=== PATIENT | male | born 1950 | race Caucasian/White ===

== ENCOUNTER → 2020-12-03 13:02 | Outpatient (CLI) | payer MEDICARE, OTHER, SELFPAY ==
[2020-12-03 20:32] LABS: COVID19 - ORCAS (NP or Nasal) Negative (Negative)
== END ==
PROVIDERS: Family Provider Family Medicine; PCP Family Medicine; Visit Provider Family Medicine
DX: Z20.822 Contact with and (suspected) exposure to COVID-19 (principal)
CPT/HCPCS: C9803; U0003

== ENCOUNTER → 2021-05-06 08:15 | Outpatient (CLI) | payer MEDICARE, OTHER, SELFPAY ==
[2021-05-07 21:54] LABS: COVID19 - ORCAS (NP or Nasal) Negative (Negative)
== END ==
PROVIDERS: Family Provider Family Medicine; PCP Family Medicine; Referring Provider Family Medicine; Visit Provider Family Medicine
DX: Z20.822 Contact with and (suspected) exposure to COVID-19 (principal)
CPT/HCPCS: C9803; U0003

== ENCOUNTER → 2021-11-12 13:00 | Outpatient (CLI) | payer MEDICARE, OTHER, SELFPAY ==
[2021-11-12 18:58] LABS: Alanine Aminotransferase 19 IU/L (<50); Albumin 3.8 g/dL (3.5-5.0); Albumin Globulin Ratio 1.4 (1.0-2.8); Alkaline Phosphatase 52 U/L (38-126); Aspartate Aminotransferase 27 IU/L (17-59); Bilirubin Total 0.8 mg/dL (0.2-1.3); Blood Urea Nitrogen 16 mg/dL (9-20); Calcium 8.9 mg/dL (8.4-10.2); Carbon Dioxide 31 mmol/L (22-32); Chloride 104 mmol/L (98-107); Cholesterol 196 mg/dL (140-199); Estimated Glomerular Filt Rate > 60 mL/min (>60); Globulin 2.7 g/dL (1.7-4.1); Glucose 91 mg/dL (80-110); HDL Cholesterol 51 mg/dL (40-60); HEMOLYSIS < 15 (0-50); LDL Cholesterol Calculated 123 mg/dL (<100); Potassium 4.2 mmol/L (3.4-5.1); Sodium 140 mmol/L (137-145); Total Protein 6.5 g/dL (6.3-8.2); Triglycerides 108 mg/dL (35-150)
[2021-11-12 18:59] LABS: Add Manual Diff / Slide Review NO; Basophils Absolute Auto 0 /uL (0-100); Basophils Percent Auto 0.6 % (0-2); Eosinophils Absolute Auto 100 /uL (0-450); Eosinophils Percent Auto 2.1 % (2-4); Hematocrit 43.9 % (41-53); Hemoglobin 14.8 g/dL (13.5-17.5); Lymphocytes Absolute Auto 1800 /uL (1100-4500); Lymphocytes Percent Auto 35.6 % (25-40); Mean Corpuscular HGB Conc 33.8 % (30-36); Mean Corpuscular Hemoglobin 31.7 PG (26-34); Mean Corpuscular Volume 93.8 fL (80-100); Monocytes Absolute Auto 400 /uL (0-900); Monocytes Percent Auto 8.5 % (3-14); Neutrophils Absolute Auto 2700 /uL (1500-7000); Neutrophils Percent Auto 53.2 % (50-75); Platelet Count 160 X10^3/uL (150-400); Red Blood Cell Count 4.68 X10^6/uL (4.5-5.9); Red Cell Distribution Width 13.9 % (11.6-14.8)
[2021-11-12 19:08] LABS: NT-proBNP (BNP-Adult 18+) 58 pg/mL (<125)
[2021-11-12 19:29] LABS: Prostate Specific Antigen Scrn 0.581 ng/mL (0.1-4.0)
== END ==
PROVIDERS: Family Provider Family Medicine; PCP Family Medicine; Visit Provider Physician Assistant
DX: Z13.220 Encounter for screening for lipoid disorders (principal); Z12.5 Encounter for screening for malignant neoplasm of prostate; R60.0 Localized edema; M25.511 Pain in right shoulder
CPT/HCPCS: 80053; 80061; 83880; 85025; G0103

== ENCOUNTER → 2021-12-30 09:23 | Outpatient (CLI) | payer MEDICARE, OTHER, SELFPAY ==
[2021-12-30 19:24] LABS: Add Manual Diff / Slide Review NO; Basophils Absolute Auto 0 /uL (0-100); Basophils Percent Auto 0.6 % (0-2); Eosinophils Absolute Auto 100 /uL (0-450); Eosinophils Percent Auto 2.6 % (2-4); Hematocrit 44.2 % (41-53); Hemoglobin 15.1 g/dL (13.5-17.5); Lymphocytes Absolute Auto 1300 /uL (1100-4500); Lymphocytes Percent Auto 33.4 % (25-40); Mean Corpuscular HGB Conc 34.1 % (30-36); Mean Corpuscular Hemoglobin 31.9 PG (26-34); Mean Corpuscular Volume 93.5 fL (80-100); Monocytes Absolute Auto 400 /uL (0-900); Monocytes Percent Auto 9.9 % (3-14); Neutrophils Absolute Auto 2200 /uL (1500-7000); Neutrophils Percent Auto 53.5 % (50-75); Platelet Count 163 X10^3/uL (150-400); Red Blood Cell Count 4.73 X10^6/uL (4.5-5.9); Red Cell Distribution Width 13.7 % (11.6-14.8)
[2021-12-30 19:26] LABS: Prothrombin Time 58.3 SECONDS (10.1-12.7)
[2021-12-30 19:47] LABS: INR 4.9 (0.9-1.3)
[2021-12-30 19:49] LABS: Alanine Aminotransferase 20 IU/L (<50); Albumin 3.7 g/dL (3.5-5.0); Albumin Globulin Ratio 1.4 (1.0-2.8); Alkaline Phosphatase 47 U/L (38-126); Aspartate Aminotransferase 25 IU/L (17-59); BUN Creatinine Ratio 20.9 (6-22); Bilirubin Total 0.7 mg/dL (0.2-1.3); Blood Urea Nitrogen 14 mg/dL (9-20); Calcium 8.7 mg/dL (8.4-10.2); Carbon Dioxide 29 mmol/L (22-32); Chloride 105 mmol/L (98-107); Estimated Glomerular Filt Rate > 60 mL/min (>60); Globulin 2.6 g/dL (1.7-4.1); Glucose 105 mg/dL (80-110); HEMOLYSIS < 15 (0-50); Potassium 4.4 mmol/L (3.4-5.1); Sodium 140 mmol/L (137-145); Total Protein 6.3 g/dL (6.3-8.2)
== END ==
PROVIDERS: Family Provider Family Medicine; PCP Family Medicine; Visit Provider Family Medicine
DX: M25.511 Pain in right shoulder (principal); D69.9 Hemorrhagic condition, unspecified
CPT/HCPCS: 80053; 85025; 85610

== ENCOUNTER 2022-02-17 14:06 | Emergency (ER) | payer MEDICARE, OTHER, SELFPAY ==
[2022-02-17 14:11] VITALS: BP 121/81; PULSE 91; RESP 18; TEMP 36.7; O2SAT 96
--- NOTE | 2022-02-17 14:14 | DI.US.S_ITS ---
PROCEDURE: US PERIPH VENOUS LOW EXTREM LT INDICATIONS: lt lower leg pain, hx of dvt TECHNIQUE: Real-time imaging, as well as color and pulse Doppler interrogation, were performed of the lower extremity deep veins from the inguinal ligament to the popliteal fossa. COMPARISON: None. FINDINGS: The common femoral, femoral and popliteal veins are normally compressible, and free of intraluminal thrombus. Color and pulse Doppler demonstrate normal phasic intraluminal flow. There is normal augmentation response to distal compression maneuver. IMPRESSION: No deep vein thrombosis of the left lower extremity. Dictated by: Mary Jo Nance M.D. on 02/17/2022 at 14:52 Approved by: Mary Jo Nance M.D. on 02/17/2022 at 14:52
[2022-02-17 15:44] LABS: INR 2.4 (0.9-1.3); Prothrombin Time 27.1 SECONDS (10.1-12.7)
--- NOTE | 2022-02-17 17:07 | ED.EXTPRO ---
HPI - Extremity Problem <GEENA Wray - Last Filed: 02/17/22 18:15> General Chief complaint: Extremity Problem,Nontraumatic Stated complaint: Poss blood clot left leg- sent by [facility] Time Seen by Provider: 02/17/22 14:17 Source: patient Mode of arrival: Ambulatory History of Present Illness HPI Narrative: 71-year-old male, nonsmoker with history of left hip replacement and right lower extremity DVT, presents to the emergency department with left lower leg pain x5 days. Patient went on a long walk and developed the pain shortly afterwards. 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 Patient has had difficulty sleeping due to the pain over the last 5 days, when he previously saw his de icer finisher. Patient able to ambulate without difficulty. Related Data Previous Rx's Medication Instructions Recorded sildenafil 100 mg tablet 100 mg PO DAILY PRN sexual 05/07/21 activity #10 tabs warfarin 2.5 mg tablet 2.5 mg PO DAILY #40 tabs 12/31/21 oxycodone-acetaminophen 5 mg-325 1 tab PO Q6H PRN pain #10 tabs 02/17/22 mg tablet (Percocet) Allergies Allergy/AdvReac Type Severity Reaction Status Date / Time No Known Drug Allergies Allergy Verified 02/11/22 09:06 Review of Systems <GEENA Wray - Last Filed: 02/17/22 18:15> Review of Systems Narrative: Narrative: GENERAL: Denies chills, fatigue, fever, sweats. See HPI HEENT: Denies sinus pain, ear pain, sore throat, difficulty swallowing, dizziness. RESPIRATORY: Denies dyspnea, cough, wheezing, sputum. CARDIOVASCULAR: Denies chest pain, palpitations, edema. GASTROINTESTINAL: Denies nausea, vomiting, abdominal pain, diarrhea, constipation. : Denies dysuria, frequency, incontinence, hematuria, urinary retention, flank pain. MSK: Denies weakness, joint pain, or bony pain. SKIN: Denies rash, skin lesions, or pruritis. Endorses left calf swelling and and pain. NEUROLOGIC: Denies weakness, dizziness, headache, numbness, confusion. PSYCHIATRIC: No concerning psychosocial issues. Patient History <GEENA Wray - Last Filed: 02/17/22 18:15> Medical History Anticoagulated on Coumadin Encounter for hepatitis C virus screening test for high risk patient Routine general medical examination at a health care facility Screening for deficiency anemia Screening for diabetes mellitus Screening for lipid disorders Screening for prostate cancer Social History Smoking Status: Never smoker Smoking Status: Never smoker Exam <GEENA Wray - Last Filed: 02/17/22 18:15> Narrative Exam Narrative: Exam Narrative: GENERAL: This is a well-nourished, well-developed patient, in no acute distress HEAD: Atraumatic. Normocephalic. EYES: Pupils equal round and reactive. Extraocular motions intact. No scleral icterus, injection or drainage. ENT: Nose without bleeding, purulent drainage. Throat without erythema, tonsillar hypertrophy or exudate. Airway patent. NECK: Trachea midline. No JVD or lymphadenopathy. Nontender. CARDIOVASCULAR: Regular rate and rhythm without murmurs, peripheral pulses intact, cap refill <2 sec. RESPIRATORY: Breath sounds equal and clear bilaterally. No wheezes, rales, or rhonchi. No cough. No increased respiratory effort. No accessory muscle use. GASTROINTESTINAL: Abdomen soft, non-tender, nondistended without guarding or rebound. No suprapubic pain. MSK: Moves all extremities. Normal range of motion, no clubbing or edema. Neurovascularly intact. Left calf measurement 26.5 cm, right calf 24.5 cm NEURO: A&O x 3. SKIN: Warm, dry, no rashes or lesions noted. Initial Vital Signs Initial Vital Signs: Vital Signs Temperature 98.1 F 02/17/22 14:11 Pulse Rate 91 H 02/17/22 14:11 Respiratory Rate 18 02/17/22 14:11 Blood Pressure 121/81 02/17/22 14:11 Pulse Oximetry 96 02/17/22 14:11 Oxygen Delivery Method 02/17/22 14:11 Reviewed <Jessica Chan DO - Last Filed: 02/21/22 08:32> Initial Vital Signs Initial Vital Signs: Vital Signs Temperature 98.1 F 02/17/22 14:11 Pulse Rate 91 H 02/17/22 14:11 Respiratory Rate 18 02/17/22 14:11 Blood Pressure 121/81 02/17/22 14:11 Pulse Oximetry 96 02/17/22 14:11 Oxygen Delivery Method 02/17/22 14:11 Scores <GEENA Wray - Last Filed: 02/17/22 18:15> Peri Criteria for DVT Active Cancer (Treatment within 6 months): No Bedridden recently >3 days or major surgery within 4 weeks: No Calf Swelling >3cm compared to other leg: No Collateral (nonvericose) superficial veins present: No Entire leg swollen: No Localized tenderness along the deep vein system: No Pitting edema, confined to symtomatic leg: No Paralysis, paresis, or recent plaster immobilization of ext: No Previously documented DVT: Yes Alternative dx to DVT as likely or more likely: Yes Peri criteria for DVT: -1 <Jessica Chan DO - Last Filed: 02/21/22 08:32> Peri Criteria for DVT Peri criteria for DVT: -1 Course <GEENA Wray - Last Filed: 02/17/22 18:15> Orders Ordered: ED Orders 02/17/22 14:14 US periph venous low extrem lt Stat 02/17/22 15:30 Prothrombin Time INR Stat Vital Signs Vital signs: Vital Signs - 8 hr 02/17/22 14:11 02/17/22 17:46 Temperature 98.1 F Pulse Rate 91 H 70 Respiratory Rate 18 16 Blood Pressure 121/81 136/63 Pulse Oximetry 96 99 Oxygen Delivery Method Room Air Room Air <Jessica Chan DO - Last Filed: 02/21/22 08:32> Orders Ordered: ED Orders 02/17/22 14:14 US periph venous low extrem lt Stat 02/17/22 15:30 Prothrombin Time INR Stat Vital Signs Vital signs: Vital Signs - 8 hr 02/17/22 14:11 02/17/22 17:46 Temperature 98.1 F Pulse Rate 91 H 70 Respiratory Rate 18 16 Blood Pressure 121/81 136/63 Pulse Oximetry 96 99 Oxygen Delivery Method Room Air Room Air MDM - Extremity (Nontraumatic) <GEENA Wray - Last Filed: 02/17/22 18:15> Differential Diagnosis Differential diagnosis: Unlikely deep vein thrombosis of lower extremity Lab Data Labs: Lab Results 02/17/22 Range/Units 15:30 PT 27.1 H (10.1-12.7) SECONDS INR 2.4 H (0.9-1.3) Imaging Data US - DVT: Radiologist's Impression: [address] [address] Ultrasound Report Signed Patient: Aroldo Gaytan MR#: [id number] : 1950 Acct:[id number] Age/Sex: 71 / M Date of Service: 02/17/22 Loc: ED Accession Number: [id number] ?? Procedure: US periph venous low extrem lt Ordering Provider: Jessica Chan D.O. PROCEDURE:? US PERIPH VENOUS LOW EXTREM LT ? INDICATIONS:? lt lower leg pain, hx of dvt ? TECHNIQUE:? Real-time imaging, as well as color and pulse Doppler interrogation, were performed of the lower extremity deep veins from the inguinal ligament to the popliteal fossa.? ? COMPARISON:? None. ? FINDINGS:? The common femoral, femoral and popliteal veins are normally compressible, and free of intraluminal thrombus.? Color and pulse Doppler demonstrate normal phasic intraluminal flow.? There is normal augmentation response to distal compression maneuver. ? ? IMPRESSION:? No deep vein thrombosis of the left lower extremity. ? ? Dictated by: Mary Jo Nance M.D. on 02/17/2022 at 14:52 ? ? Approved by: Mary Jo Nance M.D. on 02/17/2022 at 14:52 ? [facility] Narrative Medical decision making narrative: 71-year-old male presents to the emergency department with left lower leg pain after a long walk 5 days ago. Previous history of left hip replacement and right lower extremity DVT. Patient is currently on warfarin and recently saw his de icer finisher 5 days ago. Ultrasound was negative. Wells score -1. Discharge patient home with instructions to follow up with family doctor for possible physical therapy referral. Discussed return precautions and plan of care with patient and spouse, who were agreeable with course of action. <Jessica Chan, - Last Filed: 02/21/22 08:32> Lab Data Labs: Lab Results 02/17/22 Range/Units 15:30 PT 27.1 H (10.1-12.7) SECONDS INR 2.4 H (0.9-1.3) Discharge Plan Departure Patient Disposition: Home Clinical Impression: Left leg pain Activity Restrictions/Additional Instructions: *You have been diagnosed with left leg pain. Your ultrasound for DVT was negative. As we discussed, I recommend aggressive measures after extremis activity to reduce the swelling and pain by using Rest (modified activity), along with ice, compression wrap/splint-immobilize as directed and elevation above heart. Tylenol or Ibuprofen for discomfort. Please follow-up with your family doctor for possible referral for physical activity. *What to do: *Please continue to take your regular medications as directed. [ x] New medication prescriptions sent to your pharmacy: [[facility] [place]] [ ] New medication written as a paper prescription [ ] No new medications given *Please follow up with your primary care provider in 2-3 days, call for an appointment. Let them know you were seen in the Emergency Department and that we ask that you be seen in follow up. We will electronically transmit a record of today's note if your PCP is in our system *If you do not have a primary care provider please contact the [facility] Resource line at [phone]. They will ask some questions about your medical history and help get you set up with a doctor in the community. ? Return to ER if you should have any new, worsening or concerning symptoms, such as worsening pain, severe headache, confusion, chest pain, difficulty breathing, fever greater than 101 F, shaking chills, persistent vomiting to the point that you cannot drink fluids, or other new or worsening symptoms. Prescriptions: New oxycodone-acetaminophen [Percocet] 5-325 mg tablet 1 tab PO Q6H PRN (Reason: pain) Qty: 10 0RF No Action sildenafil 100 mg tablet 100 mg PO DAILY PRN (Reason: sexual activity) Qty: 10 4RF Rx Instructions: administer 30 minutes to 4 hours before activity use lowest effective dose warfarin 2.5 mg tablet 2.5 mg PO DAILY Qty: 40 4RF Rx Instructions: Take 2PO MWF, Take 1 PO other days Referrals: Tejal Pedroza PA-C [Primary Care Provider] - Visit Report Forms: Patient Portal/API <Jessica Chan DO - Last Filed: 02/21/22 08:32> Cosign ED Attending Desireeature Attestation: I was immediately available in the department for consultation. Documentation has been reviewed.
[2022-02-17 17:46] VITALS: BP 136/63; PULSE 70; RESP 16; O2SAT 99
== END 2022-02-17 17:47 | disposition home or self-care (01) ==
PROVIDERS: Emergency Medicine; Emergency Provider Registered Nurse; Family Provider Family Medicine; PCP Physician Assistant
DX: M79.662 Pain in left lower leg (principal); Z96.642 Presence of left artificial hip joint
CPT/HCPCS: 36415; 85610; 93971; 99283; 99284

== ENCOUNTER → 2023-04-02 13:37 | Outpatient (CLI) | payer MEDICARE, OTHER, SELFPAY ==
[2023-04-02 19:15] LABS: Add Manual Diff / Slide Review NO; Basophils Absolute Auto 0 /uL (0-100); Basophils Percent Auto 0.6 % (0-2); Eosinophils Absolute Auto 100 /uL (0-450); Eosinophils Percent Auto 1.8 % (2-4); Hematocrit 44.3 % (41-53); Hemoglobin 15.2 g/dL (13.5-17.5); Lymphocytes Absolute Auto 1500 /uL (1100-4500); Lymphocytes Percent Auto 29.9 % (25-40); Mean Corpuscular HGB Conc 34.2 % (30-36); Mean Corpuscular Hemoglobin 32.3 PG (26-34); Mean Corpuscular Volume 94.2 fL (80-100); Monocytes Absolute Auto 300 /uL (0-900); Monocytes Percent Auto 6.6 % (3-14); Neutrophils Absolute Auto 3000 /uL (1500-7000); Neutrophils Percent Auto 61.1 % (50-75); Platelet Count 177 X10^3/uL (150-400); Red Cell Distribution Width 13.9 % (11.6-14.8); White Blood Cell Count 4.9 X10^3/uL (4.5-11.0)
[2023-04-02 19:33] LABS: Alanine Aminotransferase 22 IU/L (<50); Albumin 3.8 g/dL (3.5-5.0); Albumin Globulin Ratio 1.4 (1.0-2.8); Alkaline Phosphatase 52 U/L (38-126); Aspartate Aminotransferase 28 IU/L (17-59); BUN Creatinine Ratio 18.6 (6-22); Bilirubin Total 0.7 mg/dL (0.2-1.3); Blood Urea Nitrogen 13 mg/dL (9-20); Calcium 9.3 mg/dL (8.4-10.2); Carbon Dioxide 28 mmol/L (22-32); Chloride 104 mmol/L (98-107); Estimated Glomerular Filt Rate > 60 mL/min (>60); Globulin 2.7 g/dL (1.7-4.1); Glucose 137 mg/dL (80-110); HEMOLYSIS < 15 (0-50); Sodium 138 mmol/L (137-145); Total Protein 6.5 g/dL (6.3-8.2)
== END ==
PROVIDERS: Family Provider Family Medicine; PCP Physician Assistant; Visit Provider Internal Medicine
DX: I82.401 Acute embolism and thrombosis of unspecified deep veins of right lower extremity (principal)
CPT/HCPCS: 80053; 85025

== ENCOUNTER → 2024-05-16 11:06 | Outpatient (CLI) | payer MEDICARE, OTHER, SELFPAY ==
[2024-05-16 18:57] LABS: Add Manual Diff / Slide Review NO; Basophils Absolute Auto 0 /uL (0-100); Basophils Percent Auto 0.7 % (0-2); Eosinophils Absolute Auto 100 /uL (0-450); Eosinophils Percent Auto 2.8 % (2-4); Hematocrit 45.6 % (41-53); Hemoglobin 15.4 g/dL (13.5-17.5); Lymphocytes Absolute Auto 1700 /uL (1100-4500); Lymphocytes Percent Auto 35.9 % (25-40); Mean Corpuscular HGB Conc 33.7 % (30-36); Mean Corpuscular Hemoglobin 32.2 PG (26-34); Mean Corpuscular Volume 95.7 fL (80-100); Monocytes Absolute Auto 500 /uL (0-900); Neutrophils Absolute Auto 2400 /uL (1500-7000); Neutrophils Percent Auto 50.6 % (50-75); Platelet Count 177 X10^3/uL (150-400); Red Blood Cell Count 4.76 X10^6/uL (4.5-5.9); Red Cell Distribution Width 14.1 % (11.6-14.8); White Blood Cell Count 4.8 X10^3/uL (4.5-11.0)
[2024-05-16 19:10] LABS: BUN Creatinine Ratio 16.7 (6-22); Blood Urea Nitrogen 11 mg/dL (9-20); Calcium 9.4 mg/dL (8.4-10.2); Carbon Dioxide 30 mmol/L (22-32); Chloride 104 mmol/L (98-107); Estimated Glomerular Filt Rate > 60 mL/min (>60); Glucose 85 mg/dL (80-110); Potassium 4.3 mmol/L (3.4-5.1); Sodium 137 mmol/L (137-145)
[2024-05-16 20:09] LABS: HEMOLYSIS 22 (0-50); Vitamin B12 198 pg/mL (239-931)
== END ==
PROVIDERS: Family Provider Family Medicine; PCP Family Medicine; Referring Provider Family Medicine; Visit Provider Family Medicine
DX: D68.59 Other primary thrombophilia (principal); Z86.718 Personal history of other venous thrombosis and embolism; G62.9 Polyneuropathy, unspecified; M48.062 Spinal stenosis, lumbar region with neurogenic claudication; M75.40 Impingement syndrome of unspecified shoulder
CPT/HCPCS: 80048; 82607; 84155; 84165; 85025

== ENCOUNTER → 2024-10-17 10:06 | Outpatient (CLI) | payer MEDICARE, OTHER, SELFPAY ==
[2024-10-17 19:01] LABS: Add Manual Diff / Slide Review NO; Basophils Absolute Auto 0 /uL (0-100); Basophils Percent Auto 0.6 % (0-2); Eosinophils Absolute Auto 100 /uL (0-450); Eosinophils Percent Auto 3.1 % (2-4); Hematocrit 43.9 % (41-53); Hemoglobin 14.9 g/dL (13.5-17.5); Lymphocytes Absolute Auto 1500 /uL (1100-4500); Lymphocytes Percent Auto 33.3 % (25-40); Mean Corpuscular Hemoglobin 32.2 PG (26-34); Mean Corpuscular Volume 94.8 fL (80-100); Monocytes Absolute Auto 400 /uL (0-900); Monocytes Percent Auto 9.9 % (3-14); Neutrophils Absolute Auto 2400 /uL (1500-7000); Neutrophils Percent Auto 53.1 % (50-75); Platelet Count 156 X10^3/uL (150-400); Red Blood Cell Count 4.64 X10^6/uL (4.5-5.9); Red Cell Distribution Width 13.4 % (11.6-14.8); White Blood Cell Count 4.5 X10^3/uL (4.5-11.0)
[2024-10-17 19:02] LABS: BUN Creatinine Ratio 22.2 (6-22); Blood Urea Nitrogen 14 mg/dL (9-20); Carbon Dioxide 26 mmol/L (22-32); Chloride 107 mmol/L (98-107); Cholesterol 193 mg/dL (140-199); Estimated Glomerular Filt Rate > 60 mL/min (>60); Glucose 112 mg/dL (80-110); HDL Cholesterol 43 mg/dL (40-60); HEMOLYSIS < 15 (0-50); LDL Cholesterol Calculated 113 mg/dL (<100); Sodium 139 mmol/L (137-145); Triglycerides 187 mg/dL (35-150)
== END ==
PROVIDERS: PCP Family Medicine; Visit Provider Family Medicine
DX: Z13.6 Encounter for screening for cardiovascular disorders (principal); Z86.718 Personal history of other venous thrombosis and embolism; D68.59 Other primary thrombophilia; Z13.220 Encounter for screening for lipoid disorders; R73.9 Hyperglycemia, unspecified; Z79.01 Long term (current) use of anticoagulants
CPT/HCPCS: 80048; 80061; 85025

== ENCOUNTER → 2024-12-16 09:13 | Outpatient (CLI) | payer MEDICARE, OTHER, SELFPAY ==
--- NOTE | 2024-12-16 09:15 | DI.MRI.S_ITS ---
PROCEDURE: MR SHOULDER RT WO CON INDICATIONS: loss of strength and ROM TECHNIQUE: Noncontrast oblique coronal T2 fast spin echo with fat saturation, oblique sagittal T1 spin echo and T2 fast spin echo with fat saturation, axial T1 spin echo and T2 fast spin echo with fat saturation through the shoulder. COMPARISON: [facility], MR, MR SHOULDER RT WO CON, 03/17/2017, 11:18. [facility] ([facility]), CR, XR SHOULDER RT MIN 2V, 05/11/2024, 14:05. [facility], MR, MR SHOULDER LT WO CON, 12/16/2024, 9:30. FINDINGS: Image quality: Excellent. Rotator cuff: Full-thickness tearing of the supraspinatus tendon and the anterior fibers of the infraspinatus tendon from their distal insertions measuring 1.8 cm in anterior-posterior dimension with 3.6 cm of proximal tendon retraction. Teres minor tendon is intact. There is high-grade partial articular sided and likely full- thickness tearing of the supraspinatus tendon at the distal insertion with estimated 1.4 cm of proximal tendon retraction. Grade 3 fatty infiltration of the superior portion of the subscapularis muscle. The remaining rotator cuff muscles are normal in bulk. Bones and bursae: No acute trabecular bone injury or fracture. Small chronic traction cystic changes are seen at the posterior superior humeral head. Mild degenerative spurring in the glenoid rim. Moderate degenerative changes of the acromioclavicular joint subchondral edema, mild subchondral cystic changes, and small marginal osteophytes. Glenohumeral joint fluid communicates with the subacromial/subdeltoid bursa. Capsule and soft tissues: Mild diffuse labral degeneration without an acute displaced tear. Proximal biceps long head tendon demonstrates partial intrasubstance tearing and perching along the medial bicipital groove, superimposed on moderate to severe tendinosis. Glenohumeral ligaments appear to be intact. IMPRESSION: 1. Full-thickness tearing of the supraspinatus tendon and the anterior fibers of the infraspinatus tendon at the distal insertions measuring 1.8 cm in anterior- posterior dimension with approximately 3.6 cm of proximal tendon retraction. 2. Full-thickness partial width tearing of the subscapularis tendon at the superior insertion with up to 1.4 cm of proximal tendon retraction. Grade 3 fatty infiltration of the superior portion of the subscapularis muscle. 3. Partial intrasubstance tearing of the proximal biceps long head tendon superimposed on moderate to severe tendinosis. 4. Moderate acromioclavicular joint osteoarthrosis. 5. Small glenohumeral effusion communicates with the subacromial/subdeltoid bursa. Approved by: Pop Campos M.D. on 12/16/2024 at 12:16
--- NOTE | 2024-12-16 09:15 | DI.MRI.S_ITS ---
PROCEDURE: MR SHOULDER LT WO CON INDICATIONS: loss of strength and ROM TECHNIQUE: Noncontrast oblique coronal T2 fast spin echo with fat saturation, oblique sagittal T1 spin echo and T2 fast spin echo with fat saturation, axial T1 spin echo and T2 fast spin echo with fat saturation through the shoulder. COMPARISON: [facility] ([facility]), CR, XR SHOULDER LT MIN 2V, 05/11/2024, 14:05. FINDINGS: Image quality: Excellent. Rotator cuff: Full-thickness tearing of the supraspinatus and infraspinatus tendons from their distal insertions with proximal tendon retraction measuring up to 4.3 cm. Thickening and increased signal within the distal teres minor tendon with superficial fluid signal intensity suspicious for partial bursal sided tearing. High-grade partial articular sided tearing of the subscapularis tendon at the superior insertion superimposed on moderate to severe tendinosis. There is increased T2-weighted signal within the musculature surrounding the shoulder, most notably in the teres minor muscle but also involving the supraspinatus, infraspinatus, subscapularis, teres major, and deltoid muscles that may be related to extensive muscle strains. No significant rotator cuff muscle atrophy is identified. Bones and bursae: No acute trabecular bone injury or fracture. Small chronic traction cystic changes at the posterior superior humeral head and greater tuberosity near the rotator cuff tendon insertions. No focal glenohumeral cartilage defect. Mild degenerative spurring is seen in the glenoid rim. Moderate degenerative changes at the acromioclavicular joint with subchondral cystic changes and small marginal osteophytes. Glenohumeral joint fluid communicates with the subacromial/subdeltoid bursa. Capsule and soft tissues: Mild labral degeneration without discrete tearing. Proximal biceps long head tendon demonstrates partial intrasubstance tearing superimposed on severe tendinosis. Inferior glenohumeral ligament is intact. IMPRESSION: 1. Full-thickness tearing of the supraspinatus and infraspinous tendons at their distal insertions with proximal tendon retraction measuring up to 4.3 cm. 2. Suspected low-grade partial bursal sided tearing of the distal teres minor tendon. 3. High-grade partial articular sided tearing of the subscapularis tendon at the superior insertion. 4. Diffuse intramuscular edema within the rotator cuff muscles and musculature surrounding the shoulder, suspicious for multifocal grade 1-2 strains. 5. Partial intrasubstance tearing of the proximal biceps long head tendon superimposed on severe tendinosis. 6. Moderate acromioclavicular joint osteoarthrosis. 7. Glenohumeral effusion communicates with the subacromial/subdeltoid bursa. Approved by: Pop Campos M.D. on 12/16/2024 at 12:16
== END ==
PROVIDERS: PCP Family Medicine; Referring Provider Family Medicine; Visit Provider Family Medicine
DX: M75.122 Complete rotator cuff tear or rupture of left shoulder, not specified as traumatic (principal); M75.121 Complete rotator cuff tear or rupture of right shoulder, not specified as traumatic; R29.898 Other symptoms and signs involving the musculoskeletal system; M19.011 Primary osteoarthritis, right shoulder; M19.012 Primary osteoarthritis, left shoulder; M25.412 Effusion, left shoulder; M25.411 Effusion, right shoulder
CPT/HCPCS: 73221